=== PATIENT | male | born 1935 | race Caucasian/White ===

== ENCOUNTER → 2019-02-26 | Outpatient (CLI) | payer MEDICARE ==
[2019-02-26 12:46] LABS: HCT 45.9 % (39.0-53.0); MCH 32.2 pg (25.0-35.0); MCHC 32.8 g/dL (31.0-37.0); MCV 98.2 fL (80.0-100.0); Platelet Count 220 k/uL (150-450); RBC 4.67 m/uL (4.30-5.90); RDW 12.7 % (11.5-15.5); WBC 6.8 k/uL (3.8-10.6)
[2019-02-26 12:50] LABS: Potassium 4.2 mmol/L (3.5-5.1)
== END | disposition home or self-care (01) ==
LOC: LABWHC1 11:38
PROVIDERS: ATTEND Internal Medicine Clinical Cardiac Electrophysiology
DX: Z01.812 Encounter for preprocedural laboratory examination (principal); I25.5 Ischemic cardiomyopathy; I48.0 Paroxysmal atrial fibrillation; Z79.899 Other long term (current) drug therapy
CPT/HCPCS: 80051; 82565; 82947; 84520; 85027

== ENCOUNTER 2019-03-19 09:35 | Day surgery (SDC) | payer MEDICARE ==
[~2019-03-19 09:35] MED LIST: HYDROmorphone 0.5 MG/0.5 ML SYRINGE IVP PRN; ONDANSETRON 4 MG/2 ML VIAL IVP PRN; ceFAZolin 1,000 MG in SODIUM CHLORIDE 0.9% IRRIGATIO 250 ML IRRIGATION ONE
[2019-03-19] MEDS ORDERED: SODIUM CHLORIDE 0.9% 1,000 ML IV ONE (10:22)
[2019-03-19] MEDS ORDERED: MIDAZOLAM 2 MG/2 ML VIAL ONE (12:15)
[2019-03-19] MEDS ORDERED: PROPOFOL 10 MG/ML 20 ML VIAL IV ONE (12:15)
[2019-03-19] MEDS ORDERED: fentaNYL (PF) 50 MCG/ML 2 ML AMP ONE (12:15)
[2019-03-19] MEDS ORDERED: LIDOCAINE 1% INJ 10MG/ML (20 ML MDV) ONE (12:43)
[2019-03-19] MEDS ORDERED: LIDOCAINE 1% INJ 10MG/ML (20 ML MDV) SQ ONE (13:11)
[2019-03-19] MEDS ORDERED: ACETAMINOPHEN TAB 325 MG TAB PO PRN (13:57)
--- NOTE | 2019-03-19 14:13 | P.PRLE ---
RE: Boogie Velez Dear Mp Mr. Boogie Carvalho underwent a dual-chamber ICD generator change for normal battery depletion. I will continue all his cardiac medications as before and will see him in the ICD clinic within a week. Thank you for entrusting me with the care of the patient Warm regards Sincerely Mynor Echols
[2019-03-19 14:54] VITALS: BMI 21.3
[2019-03-19] MEDS: CARVEDILOL 3.125 MG TAB PO SCH (17:35)
[2019-03-19] MEDS: SODIUM CHLORIDE 0.9% 1,000 ML IV SCH (17:37)
[2019-03-19] MEDS: LACTATED RINGERS 1,000 ML IV SCH (17:37)
--- NOTE | 2019-03-19 20:51 | PCN ---
PROCEDURE NOTE Mr. Boogie Velez is an 83-year-old gentleman who had a dual-chamber ICD implanted 7 years back. He has ischemic cardiomyopathy with a left ventricular ejection fraction currently reduced at 20% and is on beta blockers. He is intolerant of ARABELLA inhibitors and angiotensin receptor blockers with hypertension and hence is not taking these. Class 2 heart failure symptoms. His device is at [facility] and he was brought in for dual- chamber ICD generator change. Patient was brought to the EP lab in a fasting state. Written informed consent was obtained prior to the procedure. The left shoulder area was prepped and draped as per protocol. Lidocaine 1% was used. IV antibiotics were administered. An incision was made directly over the previous surgical site and carried down to the level of the generator. The generator was explanted. The leads were interrogated and partial capsulectomy was performed and the new generator was implanted. The explanted generator was a [employer] model number FT9461-04 and serial number [id number]. The new generator was a [employer] model number [id number], serial number [id number]. The chronic right atrial lead was a [employer] model number 1688TC, 52 cm in length and serial number [id number]. P waves were 2.3 mV, pacing impedance 400 ohms, pacing threshold 0.9 V at 0.5 milliseconds. Ten-volt test was negative. The RV lead was a single-coil [employer] model number 7122, 65 cm in length and serial number [id number]. R waves 12 mV, pacing impedance 450 ohms, pacing threshold 1.5 V at 0.8 milliseconds. ICD TESTING UNDER ANESTHESIA: A DC fib shock was used to induce ventricular fibrillation. This was adequately and appropriately detected at least sensitivity and successfully internally defibrillated with a 10-joule shock in ayah configuration. No post-shock noise. There were no dropouts noted. The charge time was 1.9 seconds. Shocking impedance 80 ohms. The device was then programmed to DDDR mode 50 to 130 bpm. VIP mode turned on and MADIT- RIT programming with appropriate antitachycardia pacing, cardioversion and defibrillation. Cinefluoroscopy of the leads was performed and the atrial lead was a tined lead positioned in the right atrial appendage. RV lead is a screw-in lead, single coil in the low RV septum. No fractures or breaks noted. The patient tolerated the procedure well without any acute complications. PLAN: Continue current medications. Continue beta blockers and avoid ARABELLA inhibitors or angiotensin receptor blockers on account of episodes of hypertension and intolerance in the past. MMRENY / KRISTENN: [id number] /
[2019-03-19] MEDS ORDERED: FUROSEMIDE 40 MG TAB PO SCH (21:00)
[2019-03-20] MEDS: SODIUM CHLORIDE 0.9% 1,000 ML IV SCH (03:59)
[2019-03-20] MEDS: LACTATED RINGERS 1,000 ML IV SCH (04:52)
[2019-03-20] MEDS ORDERED: LEVOTHYROXINE 125 MCG TAB PO SCH (06:30)
[2019-03-20 07:44] VITALS: RESP 18; TEMP 97.9
--- NOTE | 2019-03-20 07:59 | P.DS ---
Providers Attending physician: Mynor Echols Primary care physician: Stated None Hospital Course: Patient is doing well. No chest discomfort dizziness lightheadedness palpitations did resting very comfortably ICD site is healed well there is no hematoma no bruising Normal heart sounds normal S1 normal S2 Breath sounds are clear Abdomen is soft No lower extremity edema Impression Dual-chamber ICD generator change yesterday normal ICD function Severe ischemic cardio myopathy with chronic systolic dysfunction ejection fraction chronically reduced to 20% Dysautonomia and intolerance to katty inhibitors and jitters was 100 blockers Since he is not on these drugs He is on carvedilol which she is tolerating well. Suggest Continue baby aspirin and xarelto Continue Lasix Continue carvedilol Continue statins Discharge home after completion of IV antibiotics Patient Condition at Discharge: Stable Plan - Discharge Summary Discharge Rx Participant: Yes New Discharge Prescriptions: No Action Rivaroxaban [Xarelto] 15 mg PO QAM Furosemide [Lasix] 40 mg PO HS Aspirin 81 mg PO QAM Carvedilol [Coreg] 3.125 mg PO BID Levothyroxine Sodium [Synthroid] 125 mcg PO QAM Fluvastatin Sodium [Fluvastatin ER] 80 mg PO DAILY Discharge Medication List Aspirin 81 mg PO QAM 01/27/16 [History] Carvedilol [Coreg] 3.125 mg PO BID 01/27/16 [History] Furosemide [Lasix] 40 mg PO HS 01/27/16 [History] Rivaroxaban [Xarelto] 15 mg PO QAM 01/27/16 [History] Fluvastatin Sodium [Fluvastatin ER] 80 mg PO DAILY 03/16/19 [History] Levothyroxine Sodium [Synthroid] 125 mcg PO QAM 03/16/19 [History] Follow up Appointment(s)/Referral(s): Mynor Echols MD [STAFF PHYSICIAN] - 1 Week (Follow-up with the device clinic in 5 days, follow up with Dr. Echols/Ruth Bonilla/Terri Eid as previously scheduled or in 3-4 months) Activity/Diet/Wound Care/Special Instructions: PATIENT EDUCATION MATERIAL Instructions following a heart rhythm device generator implant. 1. Keep dressing DRY for ONE week. You may cover the area with Saran or Cling Wrap, prior to a shower. 2. The dressing will be removed after one week in the Device Clinic @ [facility]. Absorbable sutures were used to close the wound. 3. Avoid raising the arm above the shoulder level. [1 week restriction] 4. Avoid arm movements, like backscratching, rubbing the head, or pulling on a cord. (1 weeks restriction) 5. Gentle range of motion movements of the shoulder, closest to the incision should be performed to avoid a frozen shoulder. (Pendulum exercises of the shoulder) 6. The opposite arm may be used freely. 7. Avoid driving for 7 days. 8. Avoid activities such as golfing, swimming, weed whacking, lifting more than 10 pounds weight, bowling, gymnastics and weight training/lifting. (2 weeks restriction) 9. Activities such as wood chopping with an axe, pull-ups in the gymnasium, power lifting, arc-welding, being close to home induction cooktops will always be a problem. In case of any problems, please call [facility], Mariola Cobian, @ [phone], Attention: Device Clinic Continue all medications as previously prescribed Discharge Disposition: HOME SELF-CARE
[2019-03-20] MEDS: CARVEDILOL 3.125 MG TAB PO SCH (08:12)
[2019-03-20] MEDS ORDERED: ASPIRIN 81 MG PO SCH (09:00)
[2019-03-20] MEDS ORDERED: ATORVASTATIN 10 MG TAB PO SCH (09:00)
[2019-03-20] MEDS ORDERED: RIVAROXABAN 15 MG TAB PO SCH (09:00)
[2019-03-20 11:57] VITALS: BP 98/65; PULSE 61
== END 2019-03-20 14:03 | disposition home or self-care (01) ==
LOC: CATHEP 09:35 → 1SOBS 13:56 → CATHEP 03-20 14:03
PROVIDERS: ATTEND Internal Medicine Clinical Cardiac Electrophysiology
DX: Z45.02 Encounter for adjustment and management of automatic implantable cardiac defibrillator (principal); I25.5 Ischemic cardiomyopathy; I11.0 Hypertensive heart disease with heart failure; I50.22 Chronic systolic (congestive) heart failure; Z72.0 Tobacco use; E78.5 Hyperlipidemia, unspecified; I48.0 Paroxysmal atrial fibrillation; Z95.5 Presence of coronary angioplasty implant and graft; Z79.82 Long term (current) use of aspirin; Z79.899 Other long term (current) drug therapy
CPT/HCPCS: 33263; C1721; J2250; J0690 ×2; J2001; J3010; J2704

== ENCOUNTER → 2020-02-25 | Outpatient (CLI) | payer MEDICARE ==
[2020-02-25 13:43] LABS: HCT 51.5 % (39.0-53.0); HGB 15.9 gm/dL (13.0-17.5); MCH 30.9 pg (25.0-35.0); MCHC 30.8 g/dL (31.0-37.0); MCV 100.4 fL (80.0-100.0); Mean Platelet Volume 8.6; Platelet Count 238 k/uL (150-450); RBC 5.14 m/uL (4.30-5.90); WBC 6.4 k/uL (3.8-10.6)
[2020-02-25 21:22] LABS: African American GFR (CKD) 52.7 (60.0-200.0); Anion Gap 11.3 mmol/L (4.00-12.00); BUN/Creat Ratio 17.86 Ratio (12.00-20.00); Calcium 9.9 mg/dL (8.7-10.3); Carbon Dioxide 29.7 mmol/L (21.6-31.8); Chol/HDL Ratio 3.35; Non-African American GFR(CKD) 45.5 (60.0-200.0); Potassium 4.4 mmol/L (3.5-5.5)
== END | disposition home or self-care (01) ==
LOC: LABWHC1 11:40
PROVIDERS: ATTEND Physician Assistant
DX: Z00.00 Encounter for general adult medical examination without abnormal findings (principal); I25.10 Atherosclerotic heart disease of native coronary artery without angina pectoris; I48.0 Paroxysmal atrial fibrillation; E78.5 Hyperlipidemia, unspecified; I25.5 Ischemic cardiomyopathy
CPT/HCPCS: 36415; 80048; 80061; 84439; 84443; 85027

== ENCOUNTER → 2023-06-26 | Outpatient (CLI) | payer MEDICARE | END | disposition home or self-care (01) | LOC: LABWHC1 12:14 | PROVIDERS: ATTEND Family Medicine | DX: Z53.9 Procedure and treatment not carried out, unspecified reason (principal) ==

== ENCOUNTER → 2023-06-26 | Outpatient (CLI) | payer MEDICARE ==
[2023-06-26 15:53] LABS: ALT 32 U/L (10-49); AST 31 U/L (14-35); Albumin 4.9 g/dL (3.8-4.9); Albumin/Globulin Ratio 1.88 Ratio (1.60-3.17); Alkaline Phosphatase 90 U/L (41-126); BUN/Creat Ratio 11.29 Ratio (12.00-20.00); Blood Urea Nitrogen 19.2 mg/dL (9.0-27.0); Calcium 10.3 mg/dL (8.7-10.3); Carbon Dioxide 27.2 mmol/L (21.6-31.8); Chloride 100 mmol/L (96-109); Chol/HDL Ratio 3.07 Ratio; Globulin 2.6 g/dL (1.6-3.3); Glucose 132 mg/dL (70-110); LDL Cholesterol,Calculated 67.5 mg/dL (0.0-131.0); Potassium 4.6 mmol/L (3.5-5.5); Sodium 142 mmol/L (135-145); Total Bilirubin 1.4 mg/dL (0.3-1.2); Total Protein 7.5 g/dL (6.2-8.2); VLDL Calculation 17.52 mg/dL (5.00-40.00)
[2023-06-26 17:06] LABS: Basophils # (A) 0.08 X 10*3/uL (0.00-0.10); Basophils % (A) 0.7 %; Elliptocytes 2+; Eosinophils # (A) 0.23 X 10*3/uL (0.04-0.35); HCT 57.5 % (39.6-50.0); HGB 18.4 g/dL (13.0-17.0); Lymphocytes # (A) 1.19 X 10*3/uL (0.90-5.00); Lymphocytes % (A) 10.2 %; Mean Platelet Volume 11.7 FL (9.5-12.2); Monocytes # (A) 0.86 X 10*3/uL (0.20-1.00); Monocytes % (A) 7.4 %; NRBC Per 100 WBC 0 X 10*3/uL (0.00-0.01); Neutrophils # (A) 9.24 X 10*3/uL (1.80-7.70); Neutrophils % (A) 79.3 %; Platelet Count 254 X 10*3/uL (140-440); RBC 5.93 X 10*6/uL (4.40-5.60); RDW 13.8 % (11.5-14.5); WBC 11.65 X 10*3/uL (4.50-10.00)
== END | disposition home or self-care (01) ==
LOC: LABPAT 12:16
PROVIDERS: ATTEND Internal Medicine Clinical Cardiac Electrophysiology
DX: Z01.812 Encounter for preprocedural laboratory examination (principal); I25.5 Ischemic cardiomyopathy; I49.5 Sick sinus syndrome; I48.0 Paroxysmal atrial fibrillation
CPT/HCPCS: 36415; 80053; 80061; 82306; 84443; 85025

== ENCOUNTER → 2023-07-08 | Day surgery (SDC) | payer MEDICARE ==
[~2023-07-08] MED LIST changes: -HYDROmorphone 0.5 MG/0.5 ML SYRINGE IVP PRN; -ONDANSETRON 4 MG/2 ML VIAL IVP PRN; +PROPOFOL 10 MG/ML 20 ML VIAL IV ONE; +SODIUM CHLORIDE 0.9% 1,000 ML IV SCH; -ceFAZolin 1,000 MG in SODIUM CHLORIDE 0.9% IRRIGATIO 250 ML IRRIGATION ONE
[2023-07-08] MEDS: SODIUM CHLORIDE 0.9% 500 ML 500 ML IV ONE (06:06)
[2023-07-08 06:51] VITALS: TEMP 97.3
[2023-07-08] MEDS: IOPAMIDOL-370 100ML BTL IVP ONE (07:29)
--- NOTE | 2023-07-08 08:21 | P.EPPROC ---
- EP Procedure Note Electrophysiology Procedure Note: Indication for the procedure Ischemic cardiomyopathy Atrial fibrillation with RVR with ventricular rates in the VT zone despite medical treatment Brief intermittent noise on the ventricular channel No inappropriate ICD shocks Mildly elevated thresholds 1.25-1.5 V at 0.8 ms, Stable impedances 390-440 ohms in the RV channel High-voltage impedance ranging from 56-71, within normal range Final diagnosis and plan 1. Minor lead noise of no consequence at this time with stable impedances and mildly increased ventricular pacing thresholds 2. Atrial fibrillation with RVR on carvedilol. Switching to metoprolol 50 mg p.o. daily and if his blood pressure allows it, metoprolol dose should be increased to 100 mg p.o. daily. Amiodarone NOT prescribed at this point 3. Patient was accidentally taking Eliquis and Xarelto which had been prescribed in the hospital in [place]. He was asked to stop Eliquis and continue with Xarelto as before 4. Defibrillation level of 10 J was successful Details of the procedure Patient brought in for left upper extremity venogram, cinefluoroscopy and defibrillation level testing and electrical cardioversion if needed Procedures Cinefluoroscopy of the leads was performed No obvious fractures or breaks noted in the ICD lead Venogram left upper extremity 15 cc IV dye injected. No stenosis noted patent vein ICD was interrogated This is an Aldana ellipse DR dual-chamber device Atrial pacing threshold 0.5 V at point 5 ms, P waves 3.8 mV and pacing impedance 380 ohms Ventricular pacing threshold is elevated at 1.25 V at point 8 ms, R waves are greater than 12 mV and pacing impedance appears to be stable. Pacing impedance trends are stable High-voltage impedance trends are stable Atrial fibrillation with RVR close to 200 beats a minute was noted Patient has been in atrial fibrillation for the last several months He is appropriately anticoagulated with Xarelto 15 mg p.o. daily Intermittent brief noise was noted in the ventricular channel on the previous recordings. No noise noted during live screening/interrogation Defibrillation level testing was performed VF was induced Successfully detected and internally defibrillated with a 10 J shock, anodal configuration No post shock noise Synchronized electrical cardioversion for atrial fibrillation However the patient remained in atrial fibrillation, despite successful defibrillation of the induced VF An external synchronized cardioversion at 200 J was performed Successful electrical cardioversion to sinus rhythm was performed
[2023-07-08 09:35] VITALS: BP 108/60; PULSE 60; RESP 16
== END | disposition home or self-care (01) ==
LOC: CATHEP 05:49
PROVIDERS: ATTEND Internal Medicine Clinical Cardiac Electrophysiology
DX: I48.91 Unspecified atrial fibrillation (principal); I25.5 Ischemic cardiomyopathy; I11.0 Hypertensive heart disease with heart failure; I50.9 Heart failure, unspecified; Z79.01 Long term (current) use of anticoagulants; Z79.82 Long term (current) use of aspirin; Z79.899 Other long term (current) drug therapy
CPT/HCPCS: 36005; 93642; 75820; J2704; Q9967